=== PATIENT | male | born 1960 | race African-American/Black ===

== ENCOUNTER → 2018-05-09 | Outpatient (CLI) | payer OTHER ==
--- NOTE | 2018-05-09 14:17 | RADIOLOGY REPORT (SQ) ---
EXAM DESCRIPTION: CHEST PA/LATERAL COMPLETED DATE/TIME: 05/09/2018 2:01 pm REASON FOR STUDY: PREOP COMPARISON: None. EXAM PARAMETERS: NUMBER OF VIEWS: two views TECHNIQUE: Digital Frontal and Lateral radiographic views of the chest acquired. RADIATION DOSE: NA LIMITATIONS: none FINDINGS: LUNGS AND PLEURA: Calcified granuloma right lung apex. Lungs are otherwise well inflated and clear. No pleural effusions or pneumothorax. MEDIASTINUM AND HILAR STRUCTURES: No masses or contour abnormalities. HEART AND VASCULAR STRUCTURES: Heart normal size. No evidence for failure. BONES: No acute findings. HARDWARE: None in the chest. OTHER: No other significant finding. IMPRESSION: NO SIGNIFICANT RADIOGRAPHIC FINDING IN THE CHEST. TECHNICAL DOCUMENTATION: JOB ID: [id number] [employer]- All Rights Reserved Reading location - IP/workstation name: [email or web address]
[2018-05-09 14:36] LABS: APPEARANCE,URINE CLEAR; BILIRUBIN,URINE NEGATIVE (NEGATIVE); COLOR,URINE STRAW; GLUCOSE, URINE NEGATIVE (NEGATIVE); KETONES,URINE NEGATIVE (NEGATIVE); LEUKOCYTE ESTERASE,URINE NEGATIVE (NEGATIVE); NITRITE,URINE NEGATIVE (NEGATIVE); PROTEIN,URINE NEGATIVE (NEGATIVE); URINE SPECIFIC GRAVITY 1.003; UROBILINOGEN,URINE NEGATIVE mg/dL (<2.0)
[2018-05-09 14:42] LABS: ABSOLUTE LYMPHOCYTES (AUTO) 2.4 10^3/uL (0.5-4.7); ABSOLUTE MONOCYTES (AUTO) 0.5 10^3/uL (0.1-1.4); ABSOLUTE NEUT (AUTO) 3.2 10^3/uL (1.7-8.2); BASOPHILS % (AUTO) 0.7 % (0-2); EOSINOPHILS % (AUTO) 0.8 % (0-6); HEMATOCRIT 36.4 % (37.9-51.0); HEMOGLOBIN 12.8 g/dL (13.5-17.0); LYMPHOCYTES % (AUTO) 38.4 % (13-45); MEAN CORPUSCULAR HGB CONC 35.2 g/dL (32.0-36.0); MEAN CORPUSCULAR VOLUME 82 fl (80-97); MONOCYTES % (AUTO) 8.9 % (3-13); PLATELET COUNT 223 10^3/uL (150-450); RED BLOOD COUNT 4.42 10^6/uL (4.35-5.55); RED CELL DISTRIBUTION WIDTH 14.1 % (11.5-14.0); SEGMENTED NEUTROPHILS % (AUTO) 51.2 % (42-78); TOTAL CELLS COUNTED % (AUTO) 100 %; WHITE BLOOD COUNT 6.1 10^3/uL (4.0-10.5)
[2018-05-09 15:07] LABS: ANION GAP 11 (5-19); BLOOD UREA NITROGEN 12 mg/dL (7-20); CALCIUM 9.2 mg/dL (8.4-10.2); CARBON DIOXIDE 29 mmol/L (22-30); CHLORIDE 102 mmol/L (98-107); GLUCOSE 126 mg/dL (75-110); SODIUM 141.6 mmol/L (137-145)
--- NOTE | 2018-05-09 21:05 | EKG REPORT ---
SEVERITY:- BORDERLINE ECG - SINUS RHYTHM BORDERLINE T WAVE ABNORMALITIES : Confirmed by: Deirdre Mccullough MD 09-May-2018 21:05:18
== END ==
LOC: OD 13:23
PROVIDERS: ATTEND Orthopaedic Surgery
DX: Z01.818 Encounter for other preprocedural examination (principal); E11.9 Type 2 diabetes mellitus without complications
CPT/HCPCS: 36415; 71046; 80048; 81001; 83036; 85025; 93005; 93010

== ENCOUNTER 2018-06-05 05:31 | Inpatient (IN) | payer OTHER ==
[~2018-06-05 05:31] MED LIST: BUPIVACAINE INJ/PF LIPOSOME/PF 266 MG/20 ML SDV INJ PRN; CEFAZOLIN INJ 1 GM VIAL IV PRN; CEFAZOLIN INJ 1 GM VIAL ONE; IBUPROFEN 800 MG in NORMAL SALINE 250 ML IV PRN; LACTATED RINGERS 1000 ML IV PRN; LANSOPRAZOLE 15 MG TAB.RAP.DR ONE; LANSOPRAZOLE 15 MG TAB.RAP.DR PO PRN; LIDOCAINE 0.5% INJ-PF (5 MG/ML) 50 ML SDV SUBCUT PRN; OXYCODONE HCL SR 10 MG TABLET PO ONE; OXYCODONE HCL SR 10 MG TABLET PO PRN; VANCOMYCIN HCL 1,000 MG in DEXTROSE 5%-WATER 250 ML IV PRN
[2018-06-05] MEDS ORDERED: TRANEXAMIC ACID INJ/PF 1,000 MG/10 ML SDV IV ONE ×3 (07:04→15:30)
[2018-06-05] MEDS ORDERED: FENTANYL CITRATE INJ/PF 100 MCG/2 ML AMPUL ONE (07:04)
[2018-06-05] MEDS ORDERED: MIDAZOLAM 2 MG/2 ML INJ ONE (07:04)
[2018-06-05] MEDS ORDERED: PROPOFOL INJ 200 MG/20 ML VIAL IV ONE (07:05)
[2018-06-05] MEDS ORDERED: ACETAMINOPHEN 1,000 MG/100 ML RTUPB IV ONE (07:05)
[2018-06-05] MEDS ORDERED: EPHEDRINE SULFATE INJ 50 MG/1 ML AMPULE ONE (07:05)
[2018-06-05] MEDS ORDERED: LIDOCAINE 2% INJ (20 MG/ML) 20 ML MDV ONE (07:06)
[2018-06-05] MEDS ORDERED: BUPIVACAINE HCL/DEX-WATER/PF 15 MG/2 ML AMPULE ONE (07:06)
[2018-06-05] MEDS ORDERED: BUPIVACAINE HCL 0.5%-EPI 1:200000 INJ/PF 30 ML VIAL ONE (07:11)
[2018-06-05] MEDS ORDERED: THROMBIN (BOVINE) TOPICAL 20000 UNIT VIAL ONE (07:11)
[2018-06-05] MEDS ORDERED: FENTANYL CITRATE INJ/PF 100 MCG/2 ML AMPUL IV PRN ×3 (08:13)
[2018-06-05] MEDS ORDERED: PROMETHAZINE HCL INJ 25 MG/1 ML VIAL IV PRN (08:13)
[2018-06-05] MEDS ORDERED: ONDANSETRON HCL INJ/PF 4 MG/2 ML SDV IV PRN ×2 (08:13→08:48)
[2018-06-05] MEDS ORDERED: MEPERIDINE HCL/PF INJ 25 MG/1 ML DISP.SYRIN IV PRN (08:13)
[2018-06-05] MEDS ORDERED: MORPHINE SULFATE 10 MG/ML INJ IV PRN ×4 (08:13→08:48)
[2018-06-05] MEDS ORDERED: DIPHENHYDRAMINE HCL 50 MG/ML VIAL IV PRN ×2 (08:13→08:48)
--- NOTE | 2018-06-05 08:47 | Operative Report ---
Operative Report DATE OF SURGERY: 06/05/18 PREOPERATIVE DIAGNOSIS: Right knee arthritis OPERATION: Right knee arthroplasty SURGEON: KERRY DIANE ANESTHESIA: Spinal TISSUE REMOVED OR ALTERED: Bone to pathology ESTIMATED BLOOD LOSS: 100 PROCEDURE: Implants used: Femur: Merna triathlon size 7 CR cementless femur Tibia: 6 cementless tibia Tibial liner: 11 mm CS insert Patella: 38 mm cementless patella Procedure with the patient supine on the operating table the right the limb is prepped and draped in a sterile fashion. The limb was elevated for exsanguination and the tourniquet inflated to 280 torr. A standard midline median parapatellar approach the knee is taken. Access is gained to the femoral canal through the intercondylar notch. Intramedullary alignment instrumentation used to resect 10 mm of distal femur in 5 of valgus. Sizing guide indicated a size 7 femur. Appropriate cutting jig is then used to fashion anterior posterior and chamfer cuts. A trial reduction femurs performed and this is judged to be adequate. Attention was next turned to the tibia. Using an extra medullary alignment system 9 millimeters was resected off the lateral tibial plateau. This is sized to a size 6 tibia. A trial reduction was now performed with a 7 femur and a 6 tibia using a 11 millimeters spacer. It is full extension and central patellofemoral tracking. The articular surface the patella was next resected using an oscillating saw. All trial implants were removed. Polymethylmethacrylate is mixed and used to cement the above implants in place. On adequate curing the cement excess cement was removed the tourniquet was deflated hemostasis obtained the wound is then closed in layers using interrupted Vicryl followed by nam. A sterile compressive dressing was applied and the patient returned to recovery room in satisfactory condition.
[2018-06-05] MEDS ORDERED: RINGERS SOLUTION,LACTATED 1,000 ML IV PRN (08:48)
[2018-06-05] MEDS ORDERED: ACETAMINOPHEN 325 MG TABLET PO PRN (08:48)
[2018-06-05] MEDS ORDERED: MAG HYDROX/AL HYDROX/SIMETH SUSP 30 ML UDCUP PO PRN (08:48)
[2018-06-05] MEDS ORDERED: OXYCODONE HCL IR 5 MG TABLET PO PRN (08:48)
[2018-06-05] MEDS ORDERED: ZOLPIDEM TARTRATE 5 MG TABLET PO PRN (08:48)
[2018-06-05] MEDS ORDERED: ONDANSETRON HCL INJ/PF 4 MG/2 ML SDV ONE (09:13)
[2018-06-05] MEDS ORDERED: (PENDING PHARMACY ID) (Loratadine [Loratadine] 10 MG) PO SCH (10:00)
[2018-06-05] MEDS ORDERED: (PENDING PHARMACY ID) (Ergocalciferol (Vitamin D2) [Vitamin D] 400 UNIT) PO SCH (10:00)
[2018-06-05] MEDS ORDERED: TADALAFIL 10 MG PO SCH (10:00)
--- NOTE | 2018-06-05 10:19 | RADIOLOGY REPORT (SQ) ---
EXAM DESCRIPTION: KNEE RIGHT 2 VIEWS COMPLETED DATE/TIME: 06/05/2018 9:36 am REASON FOR STUDY: Post OP -Long Cassette in PACU M17.11 UNILATERAL PRIMARY OSTEOARTHRITIS, RIGHT KN EE COMPARISON: None. NUMBER OF VIEWS: Two view(s). TECHNIQUE: Digital radiographic images of the right knee post-procedure. LIMITATIONS: None. FINDINGS: BONES: No worrisome or unexpected findings post-procedure. DEVICE: Total knee arthroplasty SOFT TISSUES: No worrisome findings. Expected postoperative soft tissue changes. IMPRESSION: SATISFACTORY POSTOPERATIVE RIGHT KNEE. TECHNICAL DOCUMENTATION: JOB ID: [id number] [employer]- All Rights Reserved Reading location - IP/workstation name: [email or web address]
[2018-06-05] MEDS ORDERED: DEXTROSE 50%-WATER SYRINGE 12.5 GM/25 ML DOSE IV PRN (10:30)
[2018-06-05] MEDS ORDERED: DEXTROSE 40% GEL 15 GM TUBE PO PRN (10:30)
[2018-06-05] MEDS ORDERED: DEXTROSE 40% GEL 15 GM TUBE X 2 PO PRN (10:30)
[2018-06-05] MEDS ORDERED: GLUCAGON,HUMAN RECOMB 1 MG INJ IM PRN (10:30)
[2018-06-05] MEDS ORDERED: DEXTROSE 50%-WATER SYRINGE 25 GM/50 ML DOSE IV PRN (10:30)
[2018-06-05] MEDS: INSULIN LISPRO 100 UNIT/ML 3 ML VIAL SUBCUT SCH ×3 (13:11→22:31)
[2018-06-05] MEDS: LEVOTHYROXINE SODIUM 0.025 MG TABLET PO SCH (14:19)
[2018-06-05] MEDS: LORATADINE 10 MG TABLET PO SCH (14:21)
[2018-06-05] MEDS: MORPHINE SULFATE 10 MG/ML INJ IV PRN (15:16)
[2018-06-05] MEDS: DOXAZOSIN MESYLATE 2 MG TABLET PO SCH (15:17)
[2018-06-05] MEDS: IBUPROFEN 800 MG in NORMAL SALINE 250 ML IV SCH (18:35)
[2018-06-05] MEDS: ONDANSETRON 4 MG TAB.RAPDIS PO PRN (18:35)
[2018-06-05] MEDS: SENNOSIDES/DOCUSATE 8.6-50 MG 1 EACH TABLET PO SCH (18:35)
[2018-06-05] MEDS ORDERED: VANCOMYCIN HCL 1,000 MG in DEXTROSE 5%-WATER 250 ML IV ONE (20:48)
[2018-06-05] MEDS ORDERED: (PENDING PHARMACY ID) (Terazosin Hcl [Terazosin Hcl] 2 MG) PO SCH (22:00)
[2018-06-05] MEDS: OXYCODONE HCL SR 10 MG TABLET PO SCH (22:02)
[2018-06-06] MEDS: IBUPROFEN 800 MG in NORMAL SALINE 250 ML IV SCH ×3 (01:10→18:43)
[2018-06-06] MEDS: ONDANSETRON 4 MG TAB.RAPDIS PO PRN (02:24)
[2018-06-06] MEDS: MORPHINE SULFATE 10 MG/ML INJ IV PRN ×2 (02:25→07:47)
--- NOTE | 2018-06-06 06:55 | PDOC PROGRESS REPORT ---
Subjective Progress Note for:: 06/06/18 Reason For Visit: RIGHT KNEE ARTHRITIS 58-year-old black male postop day 1 status post right knee arthroplasty. Uneventful postoperative course. Dressing had to be reinforced yesterday following physical therapy. Physical Exam Vital Signs: Temp Pulse Resp BP Pulse Ox 37.6 C 92 17 168/92 H 96 06/05/18 23:35 06/05/18 23:35 06/05/18 23:35 06/05/18 23:35 06/05/18 23:35 Intake & Output 06/04/18 06/05/18 06/06/18 06:59 06:59 06:59 Intake Total 0 5510 Output Total 1750 Balance 0 3760 Weight 109.5 kg General appearance: PRESENT: no acute distress, well-nourished Head exam: PRESENT: normocephalic Respiratory exam: PRESENT: unlabored Cardiovascular exam: PRESENT: RRR Pulses: PRESENT: +1 pedal pulses bilateral Vascular exam: PRESENT: normal capillary refill GI/Abdominal exam: PRESENT: soft Rectal exam: PRESENT: deferred Extremities exam: PRESENT: other - Dressing is changed today. Wound is well approximated with nam. There is no active ongoing drainage. Distal neurovascular examination is intact. Neurological exam: PRESENT: alert, awake, oriented to person, oriented to place, oriented to time, oriented to situation, CN II-XII grossly intact. ABSENT: motor sensory deficit Skin exam: PRESENT: dry, intact, warm. ABSENT: cyanosis, rash Results Impressions: Knee X-Ray 06/05/18 08:49 IMPRESSION: SATISFACTORY POSTOPERATIVE RIGHT KNEE. Status: Imported from PACS Assessment & Plan - Diagnosis (1) Arthritis of right knee Is this a current diagnosis for this admission?: Yes Plan: Patient with complaints of pain overnight. Plan will be for ongoing physical therapy today and adjustment in analgesic medications. Anticipate discharge home tomorrow with home health services and DME. Patient has made arrangements to rent the DME since the MI has not arthroses. Apparently is also not been authorization first postoperative physical therapy. - Time Time Spent with patient: 15-24 minutes Anticipated discharge: Home with Homehealth Within: within 24 hours
[2018-06-06 06:58] LABS: HEMATOCRIT 32.9 % (37.9-51.0); HEMOGLOBIN 11.7 g/dL (13.5-17.0); MEAN CORPUSCULAR HEMOGLOBIN 29.2 pg (27.0-33.4); MEAN CORPUSCULAR HGB CONC 35.7 g/dL (32.0-36.0); MEAN CORPUSCULAR VOLUME 82 fl (80-97); PLATELET COUNT 209 10^3/uL (150-450); RED BLOOD COUNT 4.02 10^6/uL (4.35-5.55); RED CELL DISTRIBUTION WIDTH 13.8 % (11.5-14.0); WHITE BLOOD COUNT 9.7 10^3/uL (4.0-10.5)
[2018-06-06 07:26] LABS: ANION GAP 14 (5-19); BLOOD UREA NITROGEN 7 mg/dL (7-20); CALCIUM 9.2 mg/dL (8.4-10.2); CARBON DIOXIDE 25 mmol/L (22-30); CHLORIDE 96 mmol/L (98-107); GLUCOSE 154 mg/dL (75-110); POTASSIUM 4.2 mmol/L (3.6-5.0); SODIUM 134.5 mmol/L (137-145)
[2018-06-06] MEDS: LANSOPRAZOLE 15 MG TAB.RAP.DR PO SCH (08:50)
[2018-06-06] MEDS: INSULIN LISPRO 100 UNIT/ML 3 ML VIAL SUBCUT SCH ×4 (08:51→22:37)
[2018-06-06] MEDS: OXYCODONE HCL SR 10 MG TABLET PO SCH ×2 (10:50→22:35)
[2018-06-06] MEDS: SENNOSIDES/DOCUSATE 8.6-50 MG 1 EACH TABLET PO SCH ×2 (10:50→18:42)
[2018-06-06] MEDS: LORATADINE 10 MG TABLET PO SCH (10:50)
[2018-06-06] MEDS: DOXAZOSIN MESYLATE 2 MG TABLET PO SCH (10:50)
[2018-06-06] MEDS: PRENATAL VITAMIN W DHA CAPSULE PO SCH (10:50)
[2018-06-06] MEDS: ASPIRIN 81 MG TABLET, ENT COATED PO SCH (10:50)
[2018-06-06] MEDS: LEVOTHYROXINE SODIUM 0.025 MG TABLET PO SCH (10:51)
[2018-06-07] MEDS: IBUPROFEN 800 MG in NORMAL SALINE 250 ML IV SCH ×2 (03:03→09:44)
[2018-06-07] MEDS: LANSOPRAZOLE 15 MG TAB.RAP.DR PO SCH (05:28)
--- NOTE | 2018-06-07 07:29 | PDOC DISCHARGE SUMMARY ---
General - Admit/Disc Date/PCP Admission Date/Primary Care Provider: 06/05/18 05:[facility] Discharge Date: 06/07/18 - Discharge Diagnosis (1) Arthritis of right knee Is this a current diagnosis for this admission?: Yes - Additional Information Resuscitation Status: Full Code Home Medications: Ergocalciferol (Vitamin D2) [Vitamin D] 400 unit PO DAILY 06/05/18 Fluticasone Propionate [Flonase Nasal [place] 50 Mcg/[place] 16 gm] 1 spray NASL D AILY 06/05/18 Levothyroxine Sodium 25 mcg PO Q6AM 06/05/18 Omeprazole 20 mg PO DAILY 06/05/18 Terazosin HCl [Hytrin] 2 mg PO QHS 06/05/18 History of Present Illness History of Present Illness: HALIE CHANEL is a 58 year old male Patient is a 58-year-old black male with progressive right knee pain and functional disability second osteoarthritis. Patient is admitted for elective right knee arthroplasty. Hospital Course Hospital Course: Patient is admitted through the operating where he undergoes uncomplicated right knee arthroplasty. Is returned to floor in satisfactory condition. He makes excellent progress with physical therapy. Analgesia is somewhat problematic. Dressing is changed on postop day 1. Following that dressing changed wound remains clean dry and intact throughout. Physical Exam Vital Signs: Temp Pulse Resp BP Pulse Ox 37.4 C 102 H 17 145/81 H 100 06/07/18 00:04 06/07/18 00:04 06/07/18 00:04 06/07/18 00:04 06/07/18 00:04 Intake & Output 06/06/18 06/07/18 06/08/18 06:59 06:59 06:59 Intake Total 5510 2128 Output Total 1750 2550 Balance 3760 -422 Weight 109.5 kg 106.8 kg Physical Exam: Relatively muscular middle-aged black male in minor distress lying in a hospital bed General appearance: PRESENT: mild distress Head exam: PRESENT: normocephalic Respiratory exam: PRESENT: unlabored Cardiovascular exam: PRESENT: RRR Pulses: PRESENT: +1 pedal pulses bilateral GI/Abdominal exam: PRESENT: soft Rectal exam: PRESENT: deferred Extremities exam: PRESENT: other - Right lower extremity OpSite dressing remains clean dry and intact. There is moderate edema in both the calf and the knee. Distal neurovascular examination is intact. Neurological exam: PRESENT: alert, awake, oriented to person, oriented to place, oriented to time, oriented to situation. ABSENT: motor sensory deficit Psychiatric exam: PRESENT: appropriate affect, normal mood. ABSENT: homicidal ideation, suicidal ideation Skin exam: PRESENT: dry, intact, warm. ABSENT: cyanosis, rash Results Laboratory Results: 06/06/18 06:28 06/06/18 06:28 06/06/18 06:28 Sodium 134.5 L Potassium 4.2 Chloride 96 L Carbon Dioxide 25 Anion Gap 14 BUN 7 Creatinine 0.87 Est GFR ( Amer) > 60 Est GFR (Non-Af Amer) > 60 Glucose 154 H Calcium 9.2 Impressions: Knee X-Ray 06/05/18 08:49 IMPRESSION: SATISFACTORY POSTOPERATIVE RIGHT KNEE. Status: Imported from PACS Qualifiers - * PATIENT BEING DISCHARGED WITH ANY OF THE FOLLOWING DIAGNOSIS: No VTE patient discharged on overlapping Therapy?: Yes Plan Discharge Plan: Patient be discharged home with home health services. He is prearranged to rent DME because of problems with the [facility] Follow-up with Dr. Trevino and [facility] for surgery in 2 weeks for staple removal. Time Spent: Less than 30 Minutes
[2018-06-07 08:26] VITALS: BP 139/80
[2018-06-07] MEDS: INSULIN LISPRO 100 UNIT/ML 3 ML VIAL SUBCUT SCH ×2 (08:31→12:45)
[2018-06-07 08:49] LABS: HEMATOCRIT 29.3 % (37.9-51.0); HEMOGLOBIN 10.5 g/dL (13.5-17.0); MEAN CORPUSCULAR HEMOGLOBIN 29.6 pg (27.0-33.4); MEAN CORPUSCULAR HGB CONC 35.8 g/dL (32.0-36.0); MEAN CORPUSCULAR VOLUME 83 fl (80-97); PLATELET COUNT 187 10^3/uL (150-450); RED BLOOD COUNT 3.53 10^6/uL (4.35-5.55); WHITE BLOOD COUNT 10.2 10^3/uL (4.0-10.5)
[2018-06-07] MEDS: LORATADINE 10 MG TABLET PO SCH (09:37)
[2018-06-07] MEDS: ASPIRIN 81 MG TABLET, ENT COATED PO SCH (09:38)
[2018-06-07] MEDS: PRENATAL VITAMIN W DHA CAPSULE PO SCH (09:38)
[2018-06-07] MEDS: SENNOSIDES/DOCUSATE 8.6-50 MG 1 EACH TABLET PO SCH (09:38)
[2018-06-07] MEDS: OXYCODONE HCL SR 10 MG TABLET PO SCH (09:38)
[2018-06-07] MEDS: LEVOTHYROXINE SODIUM 0.025 MG TABLET PO SCH (09:38)
[2018-06-07] MEDS: DOXAZOSIN MESYLATE 2 MG TABLET PO SCH (09:40)
[2018-06-07] MEDS ORDERED: CHOLECALCIFEROL (D3) 400 UNIT TABLET PO SCH (10:00)
== END 2018-06-07 13:00 | disposition home health service (06) | DRG 470 ==
LOC: INOR 05:31 → 4S 10:00
PROVIDERS: ADMIT Orthopaedic Surgery; ATTEND Orthopaedic Surgery
PROC: 0SRC0J9 Replacement of Right Knee Joint with Synthetic Substitute, Cemented, Open Approach (ICD-10-PCS; principal; 2018-06-05 07:30)
DX: M17.11 Unilateral primary osteoarthritis, right knee (principal); E11.9 Type 2 diabetes mellitus without complications; K21.9 Gastro-esophageal reflux disease without esophagitis; Z79.899 Other long term (current) drug therapy
CPT/HCPCS: 01402; 36415; 80048; 82962; 85027; 88305; 88311; 94799; C1776; J0131; J0690; J1741; J1815; J2250; J2270; J2405; J2704; J3010; J3370; J3490; J7050; J7060; S0119